=== PATIENT | female | born 1975 | race Two or more races ===

== ENCOUNTER 2025-01-30 18:18 | Emergency (ER) | payer MEDICAID, SELFPAY ==
[2025-01-30 18:34] VITALS: BP 136/90; PULSE 79; RESP 18; TEMP 37; O2SAT 97; BMI 34.7
--- NOTE | 2025-01-30 19:02 | XR_ITS ---
Examination: CT soft tissue neck, without contrast. 2-D sagittal reconstructions. 2-D coronal reconstructions. 3-D reconstructions. Date and time of exam: January 30, 2025, 1912 hours INDICATIONS: Chicken bone stuck in the throat 2 hours CTDI: vol (mGy): 17.8 DLP: (mGycm): 494 Technique: Multiple 1.25 mm axial sections of the soft tissue neck without contrast have been obtained. 2-D sagittal and coronal reconstructions have been obtained. 3-D reconstructions have been obtained. Low dose protocols were performed. One or more of the following dose reduction techniques were used; automated exposure control, adjustment of the mA and/or KV according to patient size, use of iterative reconstruction technique. Findings: Symmetrical nasopharynx oropharynx, no opaque foreign body visualized The larynx appears normal Normal epiglottis No edema in the nasopharyngeal or oropharyngeal region The osseous structures are intact with osteophytes anteriorly C7-T1 IMPRESSION: No opaque foreign body
[2025-01-30 19:35] LABS: Basophils # (Auto) 0.0 Thou/mm3 (0.0-0.2); Basophils % (Auto) 0 % (0-2.5); Eosinophils # (Auto) 0.3 Thou/mm3 (0.0-0.5); Eosinophils % (Auto) 3 % (0-10); Hematocrit 41.3 % (36.0-46.0); Hemoglobin 14.0 g/dL (12.0-16.0); Immature Granulocytes Auto 0.03 Thou/mm3 (0.00-0.00); Lymphocytes # (Auto) 2.1 Thou/mm3 (1.0-4.8); Lymphocytes % (Auto) 20 % (10-50); Mean Corpuscular HGB Conc 33.9 g/dl (31.0-37.0); Mean Corpuscular Hemoglobin 28.2 pg (25.0-35.0); Mean Corpuscular Volume 83 fL (80-100); Monocytes # (Auto) 0.7 Thou/mm3 (0.0-0.8); Monocytes % (Auto) 6 % (0-12); Neutrophils # (Auto) 7.3 Thou/mm3 (1.8-7.7); Neutrophils % (Auto) 70 % (37-80); Nucleated Red Blood Cell # 0.00 Thou/mm3 (0.00-0.00); Nucleated Red Blood Cell % 0 /100 WBC (0); Platelet Count 295 Thou/mm3 (140-440); RDW Standard Deviation 39.8 fL (36.4-46.3); Red Blood Count 4.97 Miln/mm3 (4.00-5.20); White Blood Count 10.4 Thou/mm3 (3.6-11.0)
[2025-01-30 19:54] LABS: Alanine Aminotransferase 63 U/L (10-49); Albumin, Serum 4.6 gm/dL (3.5-5.0); Albumin/Globulin Ratio 1.5 (1.2-2.2); Alkaline Phosphatase 59 U/L (46-116); Anion Gap 10 (7-16); Aspartate Amino Transferase 37 U/L (0-34); BUN/Creatinine Ratio 10 Ratio (12-20); Bilirubin,Total 0.4 mg/dL (0.3-1.2); Blood Urea Nitrogen 11 mg/dL (9-23); Calcium 9.7 mg/dL (8.3-10.6); Calcium (Corrected) 9.7 mg/dL (8.5-10.1); Carbon Dioxide 29.9 mMol/L (20.0-31.0); Chloride 103 mMol/L (98-107); Creatinine (Component) 1.1 mg/dL (0.6-1.3); Estimated Creatinine Clearance 67.9 mL/min (>60); Globulin 3.1 gm/dL (2.3-3.5); Glucose 100 mg/dL (74-106); Osmolality,Calculated 284 (275-295); Potassium 3.7 mMol/L (3.4-5.1); Sodium 143 mMol/L (136-145); Total Protein 7.7 gm/dL (5.7-8.2); eGFR > 60 See Note
[2025-01-30] MEDS: GLUCAGON INJ 1 MG VIAL IM (20:29)
--- NOTE | 2025-01-31 15:41 | PD.EDSKIN ---
ED Skin Abcess FB-RME/HPI General Chief complaint: Skin/Abscess/Foreign Body Stated complaint: CHICKEN WING BONE STUCK IN THROAT X1 HOUR Time Seen by Provider: 01/30/25 18:29 Arrival date/time: 01/30/25 18:18 This is a case of 49-year-old female with no medical history came in in the emergency room due to possible foreign body on the throat patient was eating dinner and felt that a chicken bone stuck on her throat 1 hour prior to arrival in the emergency room no drooling of saliva patient can speak full senses patient can swallow with no difficulty Limitations: no limitations Related Data Previous Rx's ?Medication ?Instructions ?Recorded cephalexin 500 mg capsule 500 mg PO BID #20 caps 01/30/25 lidocaine HCl 2 % mucosal solution 10 ml PO Q4HR PRN Oral pain #100 mL 01/30/25 (Lidocaine Viscous) Allergies Allergy/AdvReac Type Severity Reaction Status Date / Time No Known Allergies Allergy Verified 01/30/25 18:21 Review of Systems Review of Systems Systems Reviewed: All systems reviewed, normal except as documented Past Medical History Social History SMOKING STATUS: Never smoker ED Exam General Limitations: Present no limitations General appearance: Present alert, in no apparent distress and other (Patient is awake alert oriented not in distress nontoxic looking well-hydrated well-nourished) Head Head exam: Present atraumatic, normocephalic and normal inspection Eye Eye exam: Present normal appearance, PERRL and EOMI ENT ENT exam: Present normal exam, normal oropharynx, mucous membranes moist and other (Noted pharynx redness tonsils were normal no redness no swelling no exudate no drooling of saliva patient can speak full sentences no muffled voice no hot potato voice) Neck Neck exam: Present normal inspection, full ROM and trachea midline; Absent tenderness, meningismus, lymphadenopathy or thyromegaly Chest Chest inspection: Present normal inspection and symmetric chest wall rise; Absent tenderness Respiratory Respiratory exam: Present normal lung sounds bilaterally; Absent respiratory distress, wheezes, stridor, accessory muscle use or prolonged expiratory phase Cardiovascular Cardiovascular exam: Present regular rate, normal rhythm and normal heart sounds; Absent bradycardia, tachycardia, irregular rhythm, systolic murmur or diastolic murmur Abdominal Exam Abdominal exam: Present soft and normal bowel sounds; Absent distention, tenderness, guarding, rebound, rigidity, diminished bowel sounds, hyperactive bowel sounds, hypoactive bowel sounds or organomegaly Extremities Exam Extremities exam: Present normal inspection and full ROM Back Exam Back exam: Present normal inspection and full ROM Neurological Exam Neurological exam: Present alert, oriented X3, CN II-XII intact, normal gait and reflexes normal; Absent motor sensory deficit Psychiatric Psychiatric exam: Present normal affect and normal mood Skin Skin exam: Present warm, dry, intact and normal color Course Quality Measures none Orders Category Date Time Status CT soft tissue neck wo con Stat Exams 01/30/25 19:02 Completed CBC Stat Lab 01/30/25 19:10 Completed CMP [Comprehensive Metabolic Panel] Stat Lab 01/30/25 19:10 Completed Glucagon Inj Med 01/30/25 20:14 Discontinued 1 mg IM X1 ONE Vital Signs Vital signs: Vital Signs Temperature 98.6 F 01/30/25 18:34 Pulse Rate 79 01/30/25 18:34 Respiratory Rate 18 01/30/25 18:34 Blood Pressure 136/90 H 01/30/25 18:34 Pulse Oximetry (%) 97 01/30/25 18:34 Oxygen Delivery Method Room Air 01/30/25 18:34 Oxygen saturation is 97% in room air Skin / Abscess / Foreign Body MDM Narrative MDM Narrative:: This is a case of 49-year-old female with no medical history came in in the emergency room due to possible foreign body on the throat patient was eating dinner and felt that a chicken bone stuck on her throat 1 hour prior to arrival in the emergency room no drooling of saliva patient can speak full senses patient can swallow with no difficulty physical examination patient is awake alert oriented not in distress nontoxic looking well-hydrated well-nourished throat exam noted redness on the perennial area tonsils were normal no redness no swelling no exudate no drooling of saliva patient can speak full sentences no muffled voice no hot potato voice the rest of the physical examination and neurological exam is normal and unremarkable patient CT scan showed no foreign body on the throat blood test was performed just to check the glucose and it was normal patient was given glucagon which improved and resolve the symptoms patient will be discharged home in stable condition she was advised if symptoms persist needs to see an ENT specialist for further evaluation and treatment she was prescribed lidocaine as needed for mild pain or oral pain worsening symptoms or any emergent concern return precaution in the ER was advised Patient was discharged with comfortable condition walking with stable gait. Patient verbalized no further complains explained diagnosis and answered patient question. Patient is comfortable with the proposed management plan including the need to follow up with his/her primary care physician and any specialist if applicable Discussed patient for any urgent condition or worsening sx, He/She needed to go to emergency room immediately or call 911. Patient acknowledge the responsibility to follow up as instructed and to monitor her/his symptoms. For any persistence of the symptoms for more than 3-5 days return precaution advised. Discussed the result of the test and was given printed discharge instruction Patient data External records reviewed:: [facility] previous records Clinical information provided by:: patient Social determinants that could affect healthcare access:: none Patient has the following chronic illnesses:: None How is presenting disease/condition affected by chronic disease/condition?: no chronic disease Evaluation data The following diagnostics were reviewed and interpreted by me:: radiology exam(s) Lab and/or radiology exams considered but not ordered:: Reviewed Interpretation Summary: Reviewed Medications / Prescriptions Medications or Prescriptions considered but not ordered:: Given Medication administrations:: Medication Administration History Discontinued Medications Glucagon (Glucagon Inj 1 Mg Vial) 1 mg IM X1 ONE Stop: 01/30/25 20:15 Last Admin: 01/30/25 20:29 Dose: 1 mg Documented By: BD Given Consultations Consultation(s) initiated? (list below): No Diagnosis Skin/Abscess Differential Diagnosis: other (Foreign body sensation on the throat) Most likely diagnosis given after review of the tests above:: Foreign body sensation in the Admission Indicated Admission indicated?: not indicated Explain why admission is indicated or not indicated:: Not indicated Admission Request Was there a request for admission?: No Admission Attestation Admission request attestation: Not indicated Disposition Plan Disposition Plan: Discharge Discharge Attestation Discharge Attestation: The patient and all family members were given an opportunity to ask questions and understood the discharge instructions. Discharge instructions specifically effects, indications for sooner follow up or return to the emergency department, and the expected course of current diagnosis. Patient condition: Stable Discharge Plan Plan Patient Disposition: HOME (Self Care) Patient condition on transfer: Stable Prescriptions/Referrals Prescriptions/Med Rec: New lidocaine HCl [Lidocaine Viscous] 2 % solution 10 ml PO Q4HR PRN (Reason: Oral pain) Qty: 100 0RF cephalexin 500 mg capsule 500 mg PO BID Qty: 20 0RF Referrals: No Primary/Family,Physician [Primary Care Provider] - In 1 week Problem List Clinical Impression: Foreign body sensation in throat, Abrasion of pharynx Patient/Caregiver Discharge Instructions Education Materials: ED Pharyngeal Abrasion Additional Instructions: Follow-up with your primary care physician in 2 days for reevaluation if symptoms persist needs to see an ENT specialist for further evaluation and treatment of foreign body sensation in the throat recurrence persistent worsening symptoms or any emergent concern call 911 or go to the nearest emergency room take your medication as directed finish the course antibiotic warm saline gargle is advised Print Language: Malian Stand Alone Forms: Mandy Award Info., Patient Portal Info Letter PA/ACID CONDITIONING WORKER Supervising Physician PA/ACID CONDITIONING WORKER Supervising Physician: Dr. Moran
== END 2025-01-30 21:32 | disposition home or self-care (01) ==
PROVIDERS: Nurse Practitioner Family; Emergency Provider Emergency Medicine
DX: T17.228A Food in pharynx causing other injury, initial encounter (principal); W44.F3XA Food entering into or through a natural orifice, initial encounter
CPT/HCPCS: 36415; 70490; 80053; 85025; 96372; 99283; J1611